=== PATIENT | female | born 2000 | race Caucasian/White ===

== ENCOUNTER 2023-12-31 23:40 | Inpatient (IN) | payer OTHER ==
[2024-01-01] MEDS ORDERED: Calcium Gluc 4.6 MEQ/10 ML (100 MG/ML) SLOW IVP PRN (00:02)
[2024-01-01 00:21] VITALS: BMI 34.9
[2024-01-01] MEDS ORDERED: Lorazepam 2 MG/ML VIAL SLOW IVP PRN (00:30)
[2024-01-01 00:37] LABS: Creatinine, Urine 128.24 mg/dL (47-110)
[2024-01-01] MEDS ORDERED: hydrALAZINE 20 MG/ML VIAL SLOW IVP PRN ×2 (01:08→14:02)
[2024-01-01] MEDS ORDERED: Ondansetron PF 4 MG/2 ML Vial IVP PRN ×5 (01:08→14:02)
[2024-01-01] MEDS ORDERED: Promethazine HCl 25 MG/ML VIAL IM PRN ×4 (01:08→14:02)
[2024-01-01] MEDS ORDERED: Misoprostol 200 MCG TAB PR PRN ×2 (01:08→14:02)
[2024-01-01] MEDS ORDERED: Carboprost 250 MCG/ML AMP IM PRN (01:08)
[2024-01-01] MEDS ORDERED: Diphenoxylate HCl/Atropine Tablet PO PRN (01:08)
[2024-01-01] MEDS ORDERED: Tranexamic Acid 1,000 MG/10 ML VIAL IVP PRN (01:08)
[2024-01-01] MEDS ORDERED: Ibuprofen 800 MG TAB PO PRN (01:10)
[2024-01-01] MEDS ORDERED: Lidocaine 1% (PF) 30 ML VIAL SC PRN (01:10)
[2024-01-01] MEDS ORDERED: Misoprostol 100 MCG TAB VAG SCH (01:15)
[2024-01-01] MEDS ORDERED: Oxytocin 30 units/NS 500 ML 500 ML IV SCH ×3 (01:15→14:02)
[2024-01-01 01:18] LABS: #Basophils 0.05 10x3/uL (0.0-0.2); #Eosinophils 0.05 10x3/uL (0.0-0.5); #Monocytes 0.94 10x3/uL (0.0-1.1); #Neutrophils 6.59 10x3/uL (1.5-8.4); %Basophils 0.5 % (0.0-2.0); %Eosinophils 0.5 % (0.0-6.0); %Lymphocytes 23.9 % (18.0-47.0); %Monocytes 9.2 % (0.0-10.0); %Neutrophils 64.7 % (40.0-75.0); Hemoglobin 12.7 g/dL (12.0-15.5); Mean Corpuscular HGB CONC 36.3 g/dL (32.0-36.0); Mean Corpuscular Hemoglobin 33.7 pg (27.0-33.0); Mean Corpuscular Volume 92.8 fL (81.6-98.3); Mean Platelet Volume 9.8 fL (7.4-10.4); Platelet Count 265 10x3/uL (150-450); RBC Distribution Width 12.4 % (11.5-14.5); Red Blood Cell (RBC) Count 3.77 10x6/uL (3.90-5.03); White Blood Cell (WBC) Count 10.2 10x3/uL (3.5-10.5)
[2024-01-01 01:26] LABS: Amphetamine Not Detected (NotDetected); Barbiturates Screen Not Detected (NotDetected); Benzodiazepine Screen Not Detected (NotDetected); Cocaine Metabolite Screen Not Detected (NotDetected); Methadone Not Detected (NotDetected); Methamphetamine Not Detected (NotDetected); Opiate Screen Not Detected (NotDetected); Oxycodone Screen Not Detected (NotDetected); Phencyclidine (PCP) Not Detected (NotDetected); THC/Cannabinoid Screen Detected (NotDetected); Tricyclic Screen Not Detected (NotDetected)
[2024-01-01 01:33] LABS: ALT (SGPT) 10 U/L (8-55); AST (SGOT) 10 U/L (5-34); Albumin 2.7 g/dL (3.5-5.0); Alkaline Phosphatase 144 U/L (40-110); Anion Gap 15 mmol/L (10-20); BUN (Urea Nitrogen) 10 mg/dL (7.0-18.7); Bilirubin, Total 0.2 mg/dL (0.2-1.2); Calc. Creatinine Clearance 236 mL/min (70-130); Calcium 8.5 mg/dL (7.8-10.44); Carbon Dioxide 18 mmol/L (22-29); Chloride 108 mmol/L (98-107); Estimated GFR 130; Globulin 2.7 g/dL (2.4-3.5); Glucose 88 mg/dL (70-105); Potassium 3.8 mmol/L (3.5-5.1); Protein, Total 5.4 g/dL (6.0-8.3); Sodium 137 mmol/L (136-145)
[2024-01-01 01:52] LABS: Syphilis Antibody Nonreactive (Nonreactive)
[2024-01-01 01:54] LABS: HBsAg Index 0.23 S/CO (0-0.99); Hep B Surf Ag - L&D Non-Reactive S/CO (NonReactive)
[2024-01-01] MEDS: fentaNYL/Ropivacaine Epidural 100 ML ONE (03:44)
[2024-01-01] MEDS ORDERED: Lactated Ringer's 500 ML IV PRN (04:02)
[2024-01-01] MEDS ORDERED: Acetaminophen 325 MG TAB PO PRN (04:02)
[2024-01-01] MEDS ORDERED: diphenhydrAMINE 50 MG/ML VIAL IVP PRN ×2 (04:02→10:48)
[2024-01-01] MEDS ORDERED: ePHEDrine Sulfate 50 MG/10 ML VIAL SLOW IVP PRN (04:02)
[2024-01-01] MEDS ORDERED: Naloxone HCl 0.4 mg/ml Vial IVP PRN ×4 (04:02→10:48)
[2024-01-01] MEDS ORDERED: Moisturizing Cream (Eucerin) 113 GM JAR TOP PRN ×2 (04:02→10:48)
[2024-01-01] MEDS: Oxytocin 30 units/NS 500 ML 500 ML IV SCH (04:14)
[2024-01-01] MEDS ORDERED: fentaNYL 2 mcg/Ropivacaine 0.2% Epidural 100 ML CADD EPIDURAL SCH (04:15)
[2024-01-01] MEDS ORDERED: Communication Order-Pharmacy FS SCH ×2 (04:15→11:00)
[2024-01-01] MEDS ORDERED: Bicitra 30 ML UDCUP PO PRN (07:56)
[2024-01-01] MEDS ORDERED: Famotidine/PF 20 mg/2ml Vial SLOW IVP PRN (07:56)
[2024-01-01] MEDS ORDERED: CEFAZOLIN 2 GM in Sodium Chloride 0.9% 100 ML IVPB SCH (08:00)
[2024-01-01 08:41] LABS: Analyzer IN Cardio CS NICU; RapidComm Collect By OR NURSE
[2024-01-01] MEDS ORDERED: HYDROmorphone 0.5 MG/0.5 ML SYRINGE SLOW IVP PRN (10:48)
[2024-01-01] MEDS ORDERED: Naloxone HCl 0.4 mg/ml Vial IV PRN (10:48)
[2024-01-01] MEDS ORDERED: fentaNYL 50 mcg/mL 1 mL Vial SLOW IVP PRN (10:48)
[2024-01-01] MEDS ORDERED: Meperidine HCl/PF 25 MG (1 mL) VIAL SLOW IVP PRN (10:48)
[2024-01-01] MEDS: Ketorolac Tromethamine 30 MG (1 mL) VIAL IVP SCH (12:52)
[2024-01-01] MEDS ORDERED: Methylergonovine 0.2 MG/ML VIAL IM PRN (14:02)
[2024-01-01] MEDS ORDERED: Lanolin Ointment 7 GM TUBE TOP PRN (14:02)
[2024-01-01] MEDS ORDERED: diphenhydrAMINE 25 MG CAP PO PRN (14:02)
[2024-01-01] MEDS: CEFAZOLIN 2 GM VIAL ONE (17:17)
[2024-01-01] MEDS: Azithromycin 500 MG VIAL ONE (17:17)
[2024-01-01] MEDS: Sodium Chloride 0.9% 100 ML ONE (17:18)
[2024-01-01] MEDS: Famotidine/PF 20 mg/2ml Vial ONE (17:18)
[2024-01-01] MEDS: Promethazine HCl 25 MG/ML VIAL ONE (17:18)
[2024-01-01] MEDS: Ondansetron PF 4 MG/2 ML Vial ONE (17:18)
[2024-01-01] MEDS: PHENYLEPHRINE-NS 100 MCG/ML 10 ML SYRINGE ONE (17:18)
[2024-01-01] MEDS: fentaNYL 50 mcg/mL 1 mL Vial ONE (17:18)
[2024-01-01] MEDS: Morphine PF 10 MG/10 ML VIAL ONE (17:18)
[2024-01-01] MEDS: Boostrix 0.5 ML (Tdap) VIAL (>/=7 yrs of age) IM ONE (17:19)
[2024-01-01] MEDS: Simethicone Chewable 80 MG TAB PO PRN (19:44)
[2024-01-01] MEDS: Docusate 100 MG CAP PO SCH (19:44)
[2024-01-01] MEDS: Ketorolac Tromethamine 30 MG (1 mL) VIAL IVP PRN (19:44)
[2024-01-02] MEDS: HYDROcodone/Acetaminophen 5/325 mg Tablet PO PRN ×2 (02:43→09:41)
[2024-01-02 07:04] LABS: Hematocrit 30.9 % (34.9-44.5); Hemoglobin 10.6 g/dL (12.0-15.5); Mean Corpuscular HGB CONC 34.3 g/dL (32.0-36.0); Mean Corpuscular Hemoglobin 33.2 pg (27.0-33.0); Mean Corpuscular Volume 96.9 fL (81.6-98.3); Mean Platelet Volume 9.7 fL (7.4-10.4); Platelet Count 191 10x3/uL (150-450); RBC Distribution Width 12.8 % (11.5-14.5); Red Blood Cell (RBC) Count 3.19 10x6/uL (3.90-5.03); White Blood Cell (WBC) Count 10.9 10x3/uL (3.5-10.5)
[2024-01-02] MEDS: Prenatal Vitamin 1 TAB PO SCH (08:18)
[2024-01-02] MEDS: Enoxaparin 40 MG (0.4 mL) SYRINGE SC SCH (12:21)
[2024-01-02] MEDS: Ibuprofen 800 MG TAB PO SCH (17:23)
[2024-01-03 16:13] VITALS: BP 137/85; TEMP 97.5
== END 2024-01-03 16:45 | disposition home or self-care (01) | DRG 787 ==
LOC: CSHLD/OP 23:40 → CSHLD 01-01 01:08 → CSHPED 01-01 16:50
PROVIDERS: ADMIT Family Medicine; ATTEND Family Medicine
PROC: 10D00Z1 Extraction of Products of Conception, Low, Open Approach (ICD-10-PCS; principal; 2024-01-01)
DX: O76 Abnormality in fetal heart rate and rhythm complicating labor and delivery (principal); D62 Acute posthemorrhagic anemia; O99.324 Drug use complicating childbirth; K21.9 Gastro-esophageal reflux disease without esophagitis; F90.9 Attention-deficit hyperactivity disorder, unspecified type; O99.344 Other mental disorders complicating childbirth; O99.334 Smoking (tobacco) complicating childbirth; F32.89 Other specified depressive episodes; O99.62 Diseases of the digestive system complicating childbirth; O90.81 Anemia of the puerperium; F12.90 Cannabis use, unspecified, uncomplicated; F17.200 Nicotine dependence, unspecified, uncomplicated; Z37.0 Single live birth; Z3A.39 39 weeks gestation of pregnancy
CPT/HCPCS: 36415; 51702; 80053; 80306; 82570; 82805; 84156; 85025; 85027; 86780; 86850; 86900; 86901; 87340; 99285; J1885; J2274; J2405; J2550; J2590; J3010; J3490